=== PATIENT | female | born 1990 | race Hispanic/Latino ===

== ENCOUNTER 2017-11-26 07:47 | Emergency (ER) | payer SELFPAY ==
[2017-11-26 07:57] VITALS: BP 112/76
--- NOTE | 2017-11-26 08:38 | XRay Report ---
RIGHT KNEE, 3 views: History: Right knee pain and swelling. The bony architecture is intact without evidence of fracture or dislocation. No significant soft tissue abnormality is seen. IMPRESSION: Normal right knee.
--- NOTE | 2017-11-26 11:38 | Emergency Department Report ---
HPI - General Chief Complaint: Extremity Injury, Lower Time Seen by Provider: 11/26/17 10:45 - HPI HPI: Patient is a 27-year-old female with no prior medical history presents to ED complaining of right knee pain the past 3 days. Patient states she does a lot of heavy lifting at work and is unable to work due to the knee pain. Patient states she did not injury to have trauma to the knee. Patient states it's worse and when she bends the knee and moves in certain ways. She denies fevers/ chills/nausea/any bruising or ecchymosis. ED Past Medical Hx - Past Medical History Previous Medical History?: Yes Additional medical history: Vaginal delivery 09-11-2010 - Surgical History Past Surgical History?: No - Social History Smoking Status: Current Every Day Smoker Substance Use Type: Non Opiate Pain - Medications Home Medications: Home Medications Medication Instructions Recorded Confirmed Last Taken Type Naproxen [Naprosyn] 500 mg PO BID #30 tablet 11/26/17 Unknown Rx ED Review of Systems ROS: Stated complaint: KNEE PAIN AND SWELLING Other details as noted in HPI Constitutional: denies: chills, fever Eyes: denies: eye pain, eye discharge, vision change ENT: denies: ear pain, throat pain Respiratory: denies: cough, shortness of breath, wheezing Cardiovascular: denies: chest pain, palpitations Endocrine: no symptoms reported Gastrointestinal: denies: abdominal pain, nausea, diarrhea Genitourinary: denies: urgency, dysuria, discharge Musculoskeletal: myalgia. denies: back pain, joint swelling, arthralgia Skin: denies: rash, lesions Neurological: denies: headache, weakness, paresthesias Psychiatric: denies: anxiety, depression Hematological/Lymphatic: denies: easy bleeding, easy bruising Physical Exam - Physical Exam Vital Signs: Vital Signs 11/26/17 07:54 Temperature 98.3 F Pulse Rate 80 Respiratory 18 Rate Blood Pressure 112/76 O2 Sat by Pulse 98 Oximetry Physical Exam: GENERAL: Alert and oriented x3, no apparent distress, Normal Gait, atraumatic. HEAD: Head is normocephalic and a-traumatic. LUNGS: Symetrical with respiration, No wheezing, no rales or crackles, CTAB. HEART: S1, S2 present, regular rate and rhythm without murmur, no rubs, no gallops. Non tender to palpation BACK: Full range of motion, no spinal tenderness, nontender to palpation. EXTREMITIES: All joints upper and lower has full range of motion bilaterally, right knee joint intact, patient able to extend and flex the knee without any problems. Non-erythematous, no swelling. Mild tenderness to palpation of the anterior knee above the kneecap. NEUROLOGIC: The patient is cooperative with no focal neurologic deficits.. Normal speech. Normal sensation in bilateral upper and lower extremities, No loss of sensation, SKIN: Warm and dry, No lesions, No ulceration or induration present. ED Course Vital Signs 11/26/17 07:54 Temperature 98.3 F Pulse Rate 80 Respiratory 18 Rate Blood Pressure 112/76 O2 Sat by Pulse 98 Oximetry ED Medical Decision Making - Radiology Data Radiology results: report reviewed, image reviewed Ordering Physician: CORRINE ROY MD Date of Service: 11/26/17 Procedure(s): XR knee 3V RT Accession Number(s): [id number] cc: ED MD KIRILL Fluoro Time In Minutes: RIGHT KNEE, 3 views: History: Right knee pain and swelling. The bony architecture is intact without evidence of fracture or dislocation. No significant soft tissue abnormality is seen. IMPRESSION: Normal right knee. Transcribed By: TTR Dictated By: GURPREET RIZZO JR, MD Electronically Authenticated By: GURPREET RIZZO JR, MD Signed Date/Time: 11/26/17 0831 - Medical Decision Making 27-year-old female presents with right knee pain. ED course: X-rays ordered. X-ray shows no acute abnormality. I discussed findings with the patient. Discussed the patient to follow up with her primary care physician. I discussed the patient's symptoms worsen to return to ED. Vital signs are stable patient is a no acute distress. Critical care attestation.: If time is entered above; I have spent that time in minutes in the direct care of this critically ill patient, excluding procedure time. ED Disposition Clinical Impression: Knee pain, right Qualifiers: Chronicity: chronic Qualified Code(s): M25.561 - Pain in right knee Disposition: TO HOME OR SELFCARE Is pt being admited?: No Does the pt Need Aspirin: No Condition: Stable Instructions: Arthralgia (ED) Additional Instructions: Make sure to follow up with the primary care physician as discussed. Take all your medications as you've been prescribed. If you have any worsening symptoms or develop new symptoms please return to ED immediately. Prescriptions: Naproxen [Naprosyn] 500 mg PO BID #30 tablet Referrals: PRIMARY CARE, [Primary Care Provider] - 3-5 Days [facility] [Outside] - 3-5 Days [facility] [Outside] - 3-5 Days Forms: Work/School Release Form(ED) Time of Disposition: 11:35
== END 2017-11-26 11:48 | disposition home or self-care (01) ==
LOC: ED 07:47
DX: M25.561 Pain in right knee (principal); F17.200 Nicotine dependence, unspecified, uncomplicated
CPT/HCPCS: 99283

== ENCOUNTER 2020-11-14 19:47 | Emergency (ER) | payer OTHER ==
[2020-11-14 20:12] VITALS: BP 111/79
--- NOTE | 2020-11-14 20:13 | Emergency Department Report ---
ED Upper Extremity Inj HPI - General Chief Complaint: Shoulder Injury Stated Complaint: LEFT SHOULDER INJURY Time Seen by Provider: 11/14/20 20:12 Source: patient Mode of arrival: Ambulatory Limitations: No Limitations - History of Present Illness Initial Comments: Patient is a 30-year-old female presents emergency room complaints of left shoulder pain that began just prior to arrival. She states that she was playing hide and seek with her children. She states that she was running out in the garage and that the floor was slick which caused her to slip and fall and hit her left shoulder. She states since then she has had left shoulder pain. She is still able to move the arm and move the digits. She denies any numbness or weakness. She denies ever injuring this shoulder in the past. She has a past medical history of a right shoulder dislocation. No allergies to medications. - Related Data Previous Rx's Medication Instructions Recorded Last Taken Type Naproxen [Naprosyn] 500 mg PO BID #30 tablet 11/26/17 Unknown Rx Naproxen [EC-Naprosyn] 500 mg PO BID PRN #14 tablet. 11/14/20 Unknown Rx methOCARBAMOL [Robaxin TAB] 500 mg PO BID PRN #14 tab 11/14/20 Unknown Rx Allergies Allergy/AdvReac Type Severity Reaction Status Date / Time No Known Allergies Allergy Unverified 11/26/17 07:54 ED Review of Systems ROS: Stated complaint: LEFT SHOULDER INJURY Other details as noted in HPI Comment: All other systems reviewed and negative ED Past Medical Hx - Past Medical History Previous Medical History?: Yes Additional medical history: Right shoulder dislocation - Surgical History Past Surgical History?: No - Social History Smoking Status: Current Every Day Smoker Substance Use Type: Marijuana - Medications Home Medications: Home Medications Medication Instructions Recorded Confirmed Last Taken Type Naproxen [Naprosyn] 500 mg PO BID #30 tablet 11/26/17 Unknown Rx Naproxen [EC-Naprosyn] 500 mg PO BID PRN #14 tablet. 11/14/20 Unknown Rx methOCARBAMOL [Robaxin TAB] 500 mg PO BID PRN #14 tab 11/14/20 Unknown Rx ED Physical Exam - General Limitations: No Limitations General appearance: alert, in no apparent distress - Head Head exam: Present: atraumatic, normocephalic - Eye Eye exam: Present: normal appearance - ENT ENT exam: Present: mucous membranes moist - Respiratory Respiratory exam: Absent: respiratory distress, accessory muscle use - Extremities Exam Extremities exam: Present: other (ttp to the left shoulder, no AC joint ttp, clavicles are equal, no clavicular ttp, no sulcus sign, no edema or ecchymosis, FROM of the LUE with discomfort with full flexion of the left shoulder, neurovascularly intact) - Neurological Exam Neurological exam: Present: alert, oriented X3 - Psychiatric Psychiatric exam: Present: normal affect, normal mood - Skin Skin exam: Present: warm, dry, intact ED Course Vital Signs 11/14/20 20:08 Temperature 98.2 F Pulse Rate 103 H Respiratory 16 Rate Blood Pressure 111/79 O2 Sat by Pulse 97 Oximetry ED Medical Decision Making - Radiology Data Radiology results: report reviewed Ordering Physician: ESTELLA WRAY Date of Service: 11/14/20 Procedure(s): XR shoulder 2+V LT Accession Number(s): [id number] cc: ESTELLA WRAY Fluoro Time In Minutes: LEFT SHOULDER 3 VIEWS INDICATION / CLINICAL INFORMATION: fall, left shoulder pain COMPARISON: None available. FINDINGS: BONES / JOINT(S): No acute fracture or subluxation. No significant arthritis. SOFT TISSUES: No significant abnormality. ADDITIONAL FINDINGS: None. Signer Name: Gt Batista MD Signed: 11/14/2020 8:45 PM Workstation Name: [id number] Transcribed By: ES Dictated By: Gt Batista MD Electronically Authenticated By: Gt Batista MD Signed Date/Time: 11/14/202044 DD/ 43 TD/TT: - Medical Decision Making Patient is a 30-year-old female presents emergency room complaints of left shoulder pain that began just prior to arrival. She states that she was playing hide and seek with her children. She states that she was running out in the garage and that the floor was slick which caused her to slip and fall and hit her left shoulder. She states since then she has had left shoulder pain. She is still able to move the arm and move the digits. She denies any numbness or weakness. She denies ever injuring this shoulder in the past. She has a past medical history of a right shoulder dislocation. No allergies to medications. VSS. on exam:ttp to the left shoulder, no AC joint ttp, clavicles are equal, no clavicular ttp, no sulcus sign, no edema or ecchymosis, FROM of the LUE with discomfort with full flexion of the left shoulder, neurovascularly intact. XR left shoulder: BONES / JOINT(S): No acute fracture or subluxation. No significant arthritis. SOFT TISSUES: No significant abnormality. ADDITIONAL FINDINGS: None. pt given prescription for naproxen and robaxin. advised pt Please take medication as prescribed as needed. Do not drive or operate machinery while taking muscle max Robaxin. May use ice pack, heating pad, rest, Epsom salt bath. Follow-up with orthopedic doctor. Follow-up with your primary care doctor. Return to emergency room for any new or worsening symptoms. Critical care attestation.: If time is entered above; I have spent that time in minutes in the direct care of this critically ill patient, excluding procedure time. ED Disposition Clinical Impression: Fall Qualifiers: Encounter type: initial encounter Qualified Code(s): W19.XXXA - Unspecified fall, initial encounter Left shoulder pain Qualifiers: Chronicity: acute Qualified Code(s): M25.512 - Pain in left shoulder Disposition: DC- TO HOME OR SELFCARE Is pt being admited?: No Does the pt Need Aspirin: No Condition: Stable Instructions: Shoulder Pain Additional Instructions: Please take medication as prescribed as needed. Do not drive or operate machinery while taking muscle max Robaxin. May use ice pack, heating pad, rest, Epsom salt bath. Follow-up with orthopedic doctor. Follow-up with your primary care doctor. Return to emergency room for any new or worsening symptoms. Prescriptions: Naproxen [EC-Naprosyn] 500 mg PO BID PRN #14 tablet.dr MILLER Reason: pain methOCARBAMOL [Robaxin TAB] 500 mg PO BID PRN #14 tab PRN Reason: pain Referrals: BIA DUMONT MD [Staff Physician] - 3-[address] [facility] [Provider Group] - 3-5 Days MERVAT RANKIN MD [Staff Physician] - 3-5 Days [facility] [Provider Group] - 3-5 Days PRIMARY CAREMD [Primary Care Provider] - 3-5 Days Time of Disposition: 20:56 Print Language: TELUGU
--- NOTE | 2020-11-14 20:49 | XRay Report ---
LEFT SHOULDER 3 VIEWS INDICATION / CLINICAL INFORMATION: fall, left shoulder pain COMPARISON: None available. FINDINGS: BONES / JOINT(S): No acute fracture or subluxation. No significant arthritis. SOFT TISSUES: No significant abnormality. ADDITIONAL FINDINGS: None. Signer Name: Gt Batista MD Signed: 11/14/2020 8:45 PM Workstation Name: [id number]
== END 2020-11-14 21:40 | disposition home or self-care (01) ==
LOC: ED 19:47
DX: M25.512 Pain in left shoulder (principal); F17.200 Nicotine dependence, unspecified, uncomplicated; Z79.899 Other long term (current) drug therapy; W18.30XA Fall on same level, unspecified, initial encounter; Y93.89 Activity, other specified; Y92.89 Other specified places as the place of occurrence of the external cause; Y99.8 Other external cause status
CPT/HCPCS: 99283